=== PATIENT | female | born 1940 | race Caucasian/White ===

== ENCOUNTER 2025-03-01 17:09 | Inpatient (IN) | payer OTHER ==
[~2025-03-01] VITALS: Ht 170.2 cm; Wt 64.9 kg
[2025-03-01] MEDS: DILTIAZEM HCL 5MG/ML 5ML VIAL IV ONE (17:26)
[2025-03-01] MEDS ORDERED: HEPARIN 25,000 UNITS PREMIX 250 ML IV PRN (17:45)
[2025-03-01 17:54] LABS: BASOPHILS % 0.2 % (0.0-2.0); EOSINOPHILS % 0.2 % (0.0-5.0); HEMATOCRIT. 48.4 % (36.0-48.0); HEMOGLOBIN. 16.0 g/dL (12.0-16.0); LYMPHOCYTES % 19.7 % (20.0-50.0); MEAN PLATELET VOLUME 10.6 fl (7.4-10.4); MONOCYTES % 7.4 % (2.0-8.0); NEUTROPHILS % 72.5 % (40.0-76.0); PLATELET 204 x1000/uL (130-400); RED BLOOD CELL COUNT 5.37 mill/uL (4.2-5.4); RED CELL DISTRIBUTION WIDTH 13.5 % (11.6-14.6)
[2025-03-01] MEDS ORDERED: DILTIAZEM HCL 125 MG in DEXT 5% WATER 100 ML IV ONE (18:00)
[2025-03-01 18:11] LABS: CREATININE 2.4 mg/dL (0.6-1.0)
[2025-03-01 18:12] LABS: UREA NITROGEN BLOOD 57 mg/dL (9-23)
[2025-03-01 18:14] LABS: TROPONIN I HIGH SENSITIVITY 15 ng/L (3.0-34)
[2025-03-01] MEDS: ASPIRIN 325MG EC TABLET PO ONE (18:52)
[2025-03-01] MEDS: DILTIAZEM HCL 125 MG in DEXT 5% WATER 100 ML IV NR (18:52)
[2025-03-01] MEDS: DIGOXIN 500MCG/2ML AMP IV ONE ×2 (19:41→20:28)
[2025-03-01 20:15] LABS: TROPONIN I HIGH SENSITIVITY 12 ng/L (3.0-34)
[2025-03-01] MEDS: SODIUM CHLORIDE 0.9% 1,000 ML IV ONE (20:28)
[2025-03-01] MEDS: KCL 20MEQ/100ML PREMIX 100 ML IV ONE (22:46)
[2025-03-02] VITALS (75 sets, daily range): BP systolic 86–161; BP diastolic 61–112; PULSE 77–163; RESP 12–29; TEMP 36.5–37.2; O2SAT 88–100
[2025-03-02] MEDS: POTASSIUM CHLORIDE 20MEQ/PACKET PO NR (03:50)
[2025-03-02] MEDS: DILTIAZEM HCL 125 MG in DEXT 5% WATER 100 ML IV PRN (03:51)
[2025-03-02 06:20] LABS: TROPONIN I HIGH SENSITIVITY 13 ng/L (3.0-34)
[2025-03-02 06:21] LABS: CREATININE 1.8 mg/dL (0.6-1.0); UREA NITROGEN BLOOD 52.0 mg/dL (9-23)
[2025-03-02 07:01] LABS: BASOPHILS % 0.2 % (0.0-2.0); EOSINOPHILS % 0.1 % (0.0-5.0); HEMATOCRIT. 50.0 % (36.0-48.0); HEMOGLOBIN. 16.5 g/dL (12.0-16.0); LYMPHOCYTES % 16.6 % (20.0-50.0); MEAN PLATELET VOLUME 10.4 fl (7.4-10.4); MONOCYTES % 7.4 % (2.0-8.0); NEUTROPHILS % 75.7 % (40.0-76.0); PLATELET 177 x1000/uL (130-400); RED BLOOD CELL COUNT 5.48 mill/uL (4.2-5.4); RED CELL DISTRIBUTION WIDTH 13.8 % (11.6-14.6)
[2025-03-02] MEDS ORDERED: POTASSIUM CHLORIDE 40 MEQ in DEXT 5% WATER 230 ML IV ONE (08:45)
[2025-03-02 08:59] LABS: BG BASE EXCESS 14.4 mmol/L (-2.0-3.0); BG CARBOXYHEMOGLOBIN 0.7 % (0.5-1.5); BG DEOXYHEMOGLOBIN 4.7 % (0.0-5.0); BG FLOW(L/min) 2.00 L/min; BG FRACTION INSPIRED OXYGEN 28; BG HCO3 ACT 39.2 mmol/L (21.0-28.0); BG METHEMOGLOBIN 0.1 % (0.5-1.5); BG OXYGEN SATURATION 95.3 % (94.0-98.0); BG OXYHEMOGLOBIN 94.5 % (94.0-98.0); BG PCO2 46.7 mmHg (32.0-45.0); BG PH 7.542 (7.350-7.450); BG PO2 74.3 mmHg (83.0-108.0); BG SAMPLE SITE RIGHT RADIAL; BG TOTAL HEMOGLOBIN 17.0 g/dL (12.0-16.0); BG VENT MODE NASAL CANNULA
[2025-03-02] MEDS ORDERED: ENOXAPARIN 30MG/0.3ML SYR SUBCUT SCH (09:00)
[2025-03-02] MEDS: PANTOPRAZOLE SODIUM 40 MG/VIAL IV SCH (09:43)
[2025-03-02] MEDS: ENOXAPARIN 60MG/0.6ML SYR SUBCUT SCH (09:44)
[2025-03-02] MEDS: DEXT 5%/0.45% NACL 1000ML 1,000 ML IV SCH (09:45)
[2025-03-02] MEDS: KCL 20MEQ/100ML X 2 FOR TOTAL KCL 40MEQ/200ML IV SCH (09:46)
[2025-03-02 10:44] LABS: TROPONIN I HIGH SENSITIVITY 13 ng/L (3.0-34)
[2025-03-02 11:02] LABS: INR 1.1
[2025-03-02] MEDS: PIPERACILLIN/TAZO 3.375G/50ML 50 ML IV SCH (13:06)
[2025-03-02] MEDS: POTASSIUM CHLORIDE 20MEQ TABLET SR PO SCH (13:06)
[2025-03-02 13:24] LABS: CLARITY URINE CLOUDY (CLEAR); COLOR URINE YELLOW (YELLOW); GLUCOSE URINE TRACE (NEGATIVE); KETONES URINE 1+ (NEGATIVE); LEUKOCYTE ESTERASE URINE TRACE (NEGATIVE); NITRITE URINE NEGATIVE (NEGATIVE); OCCULT BLOOD URINE NEGATIVE (NEGATIVE); PH URINE 7.0 (4.5-8.0); PROTEIN URINE 1+ (NEGATIVE); SPECIFIC GRAVITY URINE 1.019 (1.005-1.030); UROBILINOGEN URINE 1.0 E.U./dL (0.2-1.0)
[2025-03-02 13:55] LABS: SQUAMOUS EPITHELIAL CELL URINE 3+ /lpf (RARE/1+)
[2025-03-02] MEDS: DILTIAZEM HCL 60MG TABLET PO SCH (13:55)
[2025-03-02 13:56] LABS: BACTERIA URINE 4+; RBC URINE NONE SEEN /hpf (0-2); WBC URINE 0-2 /hpf (0-2)
[2025-03-02] MEDS ORDERED: HYDROCODONE/ACETAMINOPHEN 5/325MG TABLET PO PRN (14:45)
[2025-03-02] MEDS ORDERED: NALOXONE HCL 0.4MG/ML VIAL IV PRN (15:00)
[2025-03-02] MEDS: ONDANSETRON HCL 4MG/2ML INJ IV PRN (16:06)
[2025-03-02 16:53] LABS: INFLUENZA TYPE A Presumptive Negative (Pres. Neg.)
[2025-03-02 16:54] LABS: INFLUENZA TYPE B Presumptive Negative (Pres. Neg.)
[2025-03-02 16:55] LABS: RESPIRATORY SYNCYTIAL VIRUS Not Detected (Not Detectd)
[2025-03-02 17:18] LABS: ASPARTATE AMINOTRANSFERASE 38 IU/L (<34); BILIRUBIN DIRECT 0.6 mg/dL (<=3.0)
[2025-03-02 17:19] LABS: BILIRUBIN TOTAL 1.6 mg/dL (0.1-1.0); PROTEIN TOTAL 6.9 g/dL (6.0-8.3)
[2025-03-02] MEDS: ACETAZOLAMIDE SODIUM 500MG/VIAL IV SCH (21:46)
[2025-03-03] VITALS (76 sets, daily range): BP systolic 80–143; BP diastolic 48–108; PULSE 60–99; RESP 13–23; TEMP 36.6–36.7; O2SAT 87–100
[2025-03-03 01:48] LABS: TROPONIN I HIGH SENSITIVITY 19 ng/L (3.0-34)
[2025-03-03] MEDS: THIAMINE HCL 100 MG in SODIUM CHLORIDE 0.9% 99 ML IV SCH (05:14)
[2025-03-03 05:57] LABS: BASOPHILS % 0.2 % (0.0-2.0); EOSINOPHILS % 0.3 % (0.0-5.0); HEMATOCRIT. 54.2 % (36.0-48.0); HEMOGLOBIN. 17.5 g/dL (12.0-16.0); LYMPHOCYTES % 12.5 % (20.0-50.0); MEAN PLATELET VOLUME 10.3 fl (7.4-10.4); MONOCYTES % 8.4 % (2.0-8.0); NEUTROPHILS % 78.6 % (40.0-76.0); PLATELET 142 x1000/uL (130-400); RED BLOOD CELL COUNT 5.86 mill/uL (4.2-5.4); RED CELL DISTRIBUTION WIDTH 13.7 % (11.6-14.6)
[2025-03-03 06:31] LABS: CREATININE 1.9 mg/dL (0.6-1.0); TRIGLYCERIDE 124 mg/dL (0-150); UREA NITROGEN BLOOD 52 mg/dL (9-23)
[2025-03-03 06:32] LABS: TROPONIN I HIGH SENSITIVITY 16 ng/L (3.0-34)
[2025-03-03 06:32] LABS: ASPARTATE AMINOTRANSFERASE 61 IU/L (<34); LDL CHOLESTEROL 83 mg/dL (5-100)
[2025-03-03 06:34] LABS: PROTEIN TOTAL 6.4 g/dL (6.0-8.3)
[2025-03-03 06:46] LABS: BILIRUBIN TOTAL 2.6 mg/dL (0.1-1.0)
[2025-03-03] MEDS ORDERED: LIDOCAINE HCL 1% 10 MG/ML 10ML VIAL ONE (07:34)
[2025-03-03] MEDS ORDERED: ACETAMINOPHEN 650MG SUPP PR PRN (08:45)
[2025-03-03] MEDS ORDERED: ACETAMINOPHEN 325MG TABLET PO PRN (08:45)
[2025-03-03 08:47] LABS: BG BASE EXCESS 10.9 mmol/L (-2.0-3.0); BG CARBOXYHEMOGLOBIN 1.0 % (0.5-1.5); BG DEOXYHEMOGLOBIN 8.2 % (0.0-5.0); BG FLOW(L/min) 4.00 L/min; BG FRACTION INSPIRED OXYGEN 36; BG HCO3 ACT 36.2 mmol/L (21.0-28.0); BG METHEMOGLOBIN 0.3 % (0.5-1.5); BG OXYGEN SATURATION 91.7 % (94.0-98.0); BG OXYHEMOGLOBIN 90.5 % (94.0-98.0); BG PCO2 48.2 mmHg (32.0-45.0); BG PH 7.494 (7.350-7.450); BG PO2 59.1 mmHg (83.0-108.0); BG SAMPLE SITE RIGHT RADIAL; BG TOTAL HEMOGLOBIN 17.6 g/dL (12.0-16.0); BG VENT MODE NASAL CANNULA
[2025-03-03] MEDS: ENOXAPARIN 60MG/0.6ML SYR SUBCUT SCH (10:03)
[2025-03-03] MEDS: KCL 20MEQ/100ML PREMIX 100 ML IV SCH (10:03)
[2025-03-03 12:04] LABS: HEPATITIS A AB IGM NEGATIVE (Negative)
[2025-03-03 12:05] LABS: HEPATITIS B CORE AB IGM NEGATIVE (Negative)
[2025-03-03 12:06] LABS: HEPATITIS C AB NON REACTIVE (Neg) (Negative)
[2025-03-03] MEDS ORDERED: THIAMINE HCL 100 MG in SODIUM CHLORIDE 0.9% 99 ML IV SCH (14:00)
[2025-03-03] MEDS: LACTATED RINGERS 1,000 ML IV SCH (14:34)
[2025-03-03 15:31] LABS: VITAMIN B12 SERUM 1728 pg/mL (211-911)
[2025-03-03] MEDS: DIATR MEGLU/DIATRIZOATE SOLN 30ML PO SCH (17:36)
[2025-03-04] VITALS (89 sets, daily range): BP systolic 75–134; BP diastolic 51–82; PULSE 71–99; RESP 12–23; TEMP 36.1–36.8; O2SAT 90–100
[2025-03-04] MEDS: THIAMINE HCL 100 MG in SODIUM CHLORIDE 0.9% 99 ML IV SCH (05:22)
[2025-03-04 05:54] LABS: BASOPHILS % 0.1 % (0.0-2.0); EOSINOPHILS % 0.3 % (0.0-5.0); HEMATOCRIT. 50.1 % (36.0-48.0); HEMOGLOBIN. 16.4 g/dL (12.0-16.0); LYMPHOCYTES % 16.0 % (20.0-50.0); MEAN PLATELET VOLUME 10.7 fl (7.4-10.4); MONOCYTES % 8.0 % (2.0-8.0); NEUTROPHILS % 75.6 % (40.0-76.0); PLATELET 113 x1000/uL (130-400); RED BLOOD CELL COUNT 5.46 mill/uL (4.2-5.4); RED CELL DISTRIBUTION WIDTH 13.7 % (11.6-14.6)
[2025-03-04 06:07] LABS: CREATININE 1.7 mg/dL (0.6-1.0); UREA NITROGEN BLOOD 45 mg/dL (9-23)
[2025-03-04 06:09] LABS: ASPARTATE AMINOTRANSFERASE 119 IU/L (<34); BILIRUBIN DIRECT 4.9 mg/dL (<=3.0); PHOSPHORUS 2.9 mg/dL (2.5-4.9); PROTEIN TOTAL 5.8 g/dL (6.0-8.3)
[2025-03-04 06:10] LABS: BILIRUBIN TOTAL 6.7 mg/dL (0.1-1.0)
[2025-03-04 06:37] LABS: INR 1.1
[2025-03-04 08:00] LABS: BG BASE EXCESS 7.2 mmol/L (-2.0-3.0); BG CARBOXYHEMOGLOBIN 0.6 % (0.5-1.5); BG DEOXYHEMOGLOBIN 4.2 % (0.0-5.0); BG FLOW(L/min) 5.00 L/min; BG FRACTION INSPIRED OXYGEN 40; BG HCO3 ACT 32.8 mmol/L (21.0-28.0); BG METHEMOGLOBIN 0.1 % (0.5-1.5); BG OXYGEN SATURATION 95.8 % (94.0-98.0); BG OXYHEMOGLOBIN 95.1 % (94.0-98.0); BG PCO2 49.0 mmHg (32.0-45.0); BG PH 7.444 (7.350-7.450); BG PO2 76.0 mmHg (83.0-108.0); BG SAMPLE SITE RIGHT RADIAL; BG TOTAL HEMOGLOBIN 16.5 g/dL (12.0-16.0); BG VENT MODE NASAL CANNULA
[2025-03-04] MEDS: POTASSIUM CHLORIDE 20MEQ TABLET SR PO NR (11:04)
[2025-03-04] MEDS: DILTIAZEM HCL 30MG TABLET PO SCH (15:00)
[2025-03-04] MEDS: ENOXAPARIN 80MG/0.8ML SYR SUBCUT SCH (17:42)
[2025-03-05 03:53] VITALS: BP 104/60; PULSE 66; RESP 18; TEMP 36.4; O2SAT 100
[2025-03-05 05:09] LABS: ALPHA FETOPROTEIN TUMOR MARKER 2.5 ng/mL (0.0-8.7); CA 19-9 147.0 U/mL (0-35)
[2025-03-05 06:59] LABS: BASOPHILS % 0.2 % (0.0-2.0); EOSINOPHILS % 1.8 % (0.0-5.0); HEMATOCRIT. 43.9 % (36.0-48.0); HEMOGLOBIN. 14.4 g/dL (12.0-16.0); LYMPHOCYTES % 13.8 % (20.0-50.0); MEAN PLATELET VOLUME 10.9 fl (7.4-10.4); MONOCYTES % 9.7 % (2.0-8.0); NEUTROPHILS % 74.5 % (40.0-76.0); PLATELET 101 x1000/uL (130-400); RED BLOOD CELL COUNT 4.75 mill/uL (4.2-5.4); RED CELL DISTRIBUTION WIDTH 13.7 % (11.6-14.6)
[2025-03-05 07:11] LABS: CREATININE 1.1 mg/dL (0.6-1.0)
[2025-03-05 07:13] LABS: ASPARTATE AMINOTRANSFERASE 184 IU/L (<34)
[2025-03-05 07:14] LABS: UREA NITROGEN BLOOD 32 mg/dL (9-23)
[2025-03-05 07:16] LABS: BILIRUBIN TOTAL 8.6 mg/dL (0.1-1.0); PROTEIN TOTAL 5.1 g/dL (6.0-8.3)
[2025-03-05 08:00] VITALS: BP_SYST 146; BP_SYST 93; BP_DIAS 60; BP_DIAS 69; PULSE 50; PULSE 76; RESP 14; RESP 18; TEMP 36.2; O2SAT 95
[2025-03-05] MEDS ORDERED: POTASSIUM CHLORIDE 40 MEQ in DEXT 5% WATER 230 ML IV ONE (08:30)
[2025-03-05] MEDS: KCL 20MEQ/100ML X 2 FOR TOTAL KCL 40MEQ/200ML IV SCH (09:52)
[2025-03-05 12:00] VITALS: BP 110/58; PULSE 80; RESP 20; TEMP 36.3; O2SAT 94
[2025-03-05] MEDS ORDERED: POLYVINYL ALCOHOL OPHTH DROPS 15ML BOTHEYE PRN (14:00)
[2025-03-05 16:00] VITALS: BP 100/74; PULSE 61; RESP 20; TEMP 36.2; O2SAT 98
[2025-03-05 20:00] VITALS: BP 104/55; PULSE 99; RESP 18; TEMP 36.9; O2SAT 97
[2025-03-06 00:39] VITALS: BP 119/72; PULSE 113; RESP 19; TEMP 36.2; O2SAT 95
[2025-03-06 04:00] VITALS: BP 120/62; PULSE 101; RESP 16; TEMP 36.2; O2SAT 100
[2025-03-06] MEDS: THROAT LOZENGES-BENZOCAINE/MENTH/CETYLPYRD CL LOZENGES MM PRN (06:35)
[2025-03-06 06:54] LABS: BASOPHILS % 0.3 % (0.0-2.0); EOSINOPHILS % 2.4 % (0.0-5.0); HEMATOCRIT. 41.8 % (36.0-48.0); HEMOGLOBIN. 13.8 g/dL (12.0-16.0); LYMPHOCYTES % 17.5 % (20.0-50.0); MEAN PLATELET VOLUME 10.8 fl (7.4-10.4); MONOCYTES % 10.0 % (2.0-8.0); NEUTROPHILS % 69.8 % (40.0-76.0); PLATELET 110 x1000/uL (130-400); RED BLOOD CELL COUNT 4.63 mill/uL (4.2-5.4); RED CELL DISTRIBUTION WIDTH 13.7 % (11.6-14.6)
[2025-03-06 07:10] LABS: CREATININE 1.0 mg/dL (0.6-1.0); UREA NITROGEN BLOOD 27 mg/dL (9-23)
[2025-03-06 07:12] LABS: ASPARTATE AMINOTRANSFERASE 180 IU/L (<34); BILIRUBIN TOTAL 9.0 mg/dL (0.1-1.0); PROTEIN TOTAL 5.2 g/dL (6.0-8.3)
[2025-03-06 08:00] VITALS: BP 109/65; PULSE 107; RESP 20; TEMP 36.4; O2SAT 97
[2025-03-06] MEDS: KCL 20MEQ/100ML PREMIX 100 ML IV SCH (10:02)
[2025-03-06] MEDS: POTASSIUM CHLORIDE 20MEQ TABLET SR PO SCH (10:03)
[2025-03-06 12:00] VITALS: BP 110/72; PULSE 95; RESP 18; TEMP 36.6; O2SAT 98
[2025-03-06] MEDS: DILTIAZEM HCL 30MG TABLET PO SCH (12:00)
[2025-03-06] MEDS: MAGNESIUM 2 G PREMIX 50 ML IV SCH (12:41)
[2025-03-06] MEDS: DEXT 5%/0.9% NACL KCL 20MEQ/L 1,000 ML IV SCH (12:41)
[2025-03-06 13:28] LABS: PHOSPHORUS 2.2 mg/dL (2.5-4.9)
[2025-03-06 16:00] VITALS: BP 145/54; PULSE 69; RESP 18; TEMP 36.7; O2SAT 100
[2025-03-06 20:00] VITALS: BP 147/79; PULSE 79; RESP 18; TEMP 36.8; O2SAT 97
[2025-03-07] VITALS: BP 156/92; RESP 18; TEMP 36.8; O2SAT 98
[2025-03-07 04:00] VITALS: BP 128/73; PULSE 100; RESP 18; TEMP 36.6; O2SAT 100
[2025-03-07 08:00] VITALS: BP 138/45; PULSE 98; RESP 18; TEMP 36.1; O2SAT 96
[2025-03-07 10:05] VITALS: BP 138/45; PULSE 98; TEMP 97; O2SAT 96
== END 2025-03-07 11:13 | disposition short-term general hospital (02) | DRG 871 ==
LOC: ER 17:09 → MICUSO 21:56 → EDBEDREQ 22:03 → EDBEDREQSVC 22:03 → EDBEDREQTM 22:03 → ENRESERV 22:30 → 7WST 03-04 23:01
PROVIDERS: ADMIT Internal Medicine; ATTEND Internal Medicine
PROC: 02HV33Z Insertion of Infusion Device into Superior Vena Cava, Percutaneous Approach (ICD-10-PCS; principal; 2025-03-03)
PROC: B548ZZA Ultrasonography of Superior Vena Cava, Guidance (ICD-10-PCS; 2025-03-03)
DX: A41.9 Sepsis, unspecified organism (principal); G93.41 Metabolic encephalopathy; K85.90 Acute pancreatitis without necrosis or infection, unspecified; E87.3 Alkalosis; N17.9 Acute kidney failure, unspecified; N39.0 Urinary tract infection, site not specified; K31.1 Adult hypertrophic pyloric stenosis; K56.7 Ileus, unspecified; E72.20 Disorder of urea cycle metabolism, unspecified; I48.92 Unspecified atrial flutter; I48.91 Unspecified atrial fibrillation; E87.6 Hypokalemia; E86.0 Dehydration; K76.9 Liver disease, unspecified; K80.20 Calculus of gallbladder without cholecystitis without obstruction; I10 Essential (primary) hypertension; D75.1 Secondary polycythemia; K82.8 Other specified diseases of gallbladder; K57.30 Diverticulosis of large intestine without perforation or abscess without bleeding; R06.6 Hiccough; E66.9 Obesity, unspecified; M41.9 Scoliosis, unspecified; Z96.641 Presence of right artificial hip joint; I65.21 Occlusion and stenosis of right carotid artery; Z85.3 Personal history of malignant neoplasm of breast; Z79.899 Other long term (current) drug therapy; Z68.22 Body mass index [BMI] 22.0-22.9, adult; Z90.710 Acquired absence of both cervix and uterus; Z91.148 Patient's other noncompliance with medication regimen for other reason
CPT/HCPCS: 36415; 36573; 36600; 71045; 74176; 74181; 76700; 80048; 80053; 80061; 80076; 81003; 82105; 82140; 82150; 82375; 82378; 82607; 82728; 82805; 82962; 82977; 83036; 83540; 83550; 83735; 83880; 84100; 84132; 84145; 84443; 84484; 85025; 85379; 86301; 86304; 86705; 86709; 87340; 87420; 87804; 93005; 93306; 93880; 93970; 99291; A4606; C1725; J1120; J1160; J1650; J2003; J2405; J2470; J2543; J3411; J3475; J3480; J3490; J7030; J7050; J7060; J7120; Q9963